=== PATIENT | female | born 1985 | race Caucasian/White ===

== ENCOUNTER 2019-02-03 09:07 | Emergency (ER) | payer BC, MEDICAID ==
[2019-02-03] MEDS: FAMOTIDINE 20 MG TAB PO (09:58)
[2019-02-03] MEDS: DEXAMETHASONE 10 MG/ML 1 ML INJ IM (09:58)
[2019-02-03] MEDS: DIPHENHYDRAMINE 25 MG CAP PO (09:58)
== END 2019-02-03 10:41 | disposition home or self-care (01) ==
LOC: E/R 09:07 → FTE 10:41
DX: R21 Rash and other nonspecific skin eruption (principal); I10 Essential (primary) hypertension; F17.210 Nicotine dependence, cigarettes, uncomplicated
CPT/HCPCS: 96372; 99284-25